=== PATIENT | female | born 1995 | race Asian ===

== ENCOUNTER 2022-03-02 09:00 | Outpatient (RCR) | payer OTHER, SELFPAY ==
--- NOTE | ~2022-03-02 | US_ITS ---
EXAMINATION: US OB BPP wo non-stress DATE: 03/02/2022 10:49 INDICATION: Cholestasis. Third trimester. TECHNIQUE: Real-time pelvic ultrasound was performed. COMPARISON: None. FINDINGS: There is a single living fetus in vertex presentation. The placenta is anterior. The cervix is not w ell visualized. heart rate is 150 beats per minute (bpm). The amniotic fluid index is 8.4 cm, w hich is normal. Biophysical profile performed by the technologist: breathing (30 sec sustained breathing in 30 minutes): 2 out of 2 movement (3 gross body movements in 30 minutes): 2 out of 2 tone (one episode of [id number]-[id number] limb movement): 2 out of 2 Amniotic fluid pocket (2 cm): 2 out of 2 Total score: 8 out of 8 IMPRESSION: 1. Single living fetus in vertex presentation. 2. Biophysical profile 8 out of 8. Reviewed, dictated and finalized at location A.
[2022-03-02 10:19] VITALS: BP 105/75; PULSE 108
== END 2022-03-25 10:14 | disposition home or self-care (01) ==
LOC: ANHOBOP 09:00
PROVIDERS: Visit Provider Advanced Practice Midwife
DX: O26.613 Liver and biliary tract disorders in pregnancy, third trimester (principal); K83.1 Obstruction of bile duct; Z3A.36 36 weeks gestation of pregnancy
CPT/HCPCS: 59025; 76819

== ENCOUNTER 2022-03-06 16:17 | Inpatient (IN) | payer OTHER, SELFPAY ==
[2022-03-06] VITALS (30 sets, daily range): BP systolic 118–124; BP diastolic 79–85; PULSE 101–126; TEMP 36.6; O2SAT 96–100; BMI 33.3
--- NOTE | 2022-03-06 17:01 | LDADM ---
This patient, Bridger Rodas, was admitted to Labor/Delivery/Recovery 106 on 03/06/22 at 16:17. Plans for labor, pain management and were discussed with patient. Patient/family oriented to hospital policies and general routines including ID bracelet, bed and alarms, visiting hours, pain management, procedures, bathroom and other care routines, personal items, smoking policy, room service/diet and guest tray routines, infant security routines, and visiting hours. Patient/Family are encouraged to report perceived risks to care and to ask questions if they do not understand what they are told or what they should do. See OBIX for further documentation.
[2022-03-06 17:28] LABS: Basophils Percent Auto 0.4 % (0.2-1.2); Eosinophils Absolute Auto 0.3 K/mm3 (0-0.3); Eosinophils Percent Auto 3.3 % (0-4.4); Hematocrit 36.2 % (37.0-47.0); Hemoglobin 11.6 g/dL (12.0-15.0); Immature Granulocyte Absolute 0.04 K/mm3 (0.00-0.031); Immature Granulocyte Percent A 0.4 % (0-0.5); Lymphocytes Absolute Auto 3.01 K/mm3 (0.9-3.2); Lymphocytes Percent Auto 32.3 % (18.3-44.2); Mean Corpuscular Hemoglobin 27.8 pg (26-34); Mean Corpuscular Volume 86.8 fl (80-100); Mean Platelet Volume 9.8 fl (7.4-10.4); Monocytes Absolute Auto 0.8 K/mm3 (0.1-0.6); Monocytes Percent Auto 8.7 % (2.6-8.5); Neutrophils Absolute Auto 5.1 K/mm3 (1.3-6.7); Neutrophils Percent Auto 54.9 % (45.5-73.1); Platelet Count Result 376 k/mm3 (150-375); Red Blood Count 4.17 M/mm3 (4.2-5.4); Red Cell Distribution Width 14.5 % (11.5-14.5); White Blood Count 9.3 K/mm3 (4.5-10.0)
[2022-03-06] MEDS: miSOPROStol 25 MCG TABLET VAGINAL (17:59)
[2022-03-06] MEDS: LACTATED RINGERS 1,000 ML 125 ML IV CONT (22:08)
[2022-03-06] MEDS: OXYTOCIN 30 UNITS/NS 500 ML 30 UNITS/500 ML BAG IV CONT (23:37)
[2022-03-07] VITALS (176 sets, daily range): BP systolic 93–174; BP diastolic 57–118; PULSE 54–131; RESP 16–18; TEMP 36.3–37; O2SAT 85–100
[2022-03-07] MEDS: LACTATED RINGERS 1,000 ML 125 ML IV CONT (00:34)
--- NOTE | 2022-03-07 06:09 | PM.IMHP ---
H&P: HPI History of Present Illness Date/Time: 03/07/22 06:09 Chief Complaint: induction of labor Narrative: Bridger is a 26yo at 37.3 IOL cholestasis. Also has A1GDM and late care and 4cm dermoid. Taking ursodiol. Review of Systems Review of Systems: All systems reviewed & are unremarkable except as noted in HPI and below PMFSH Family History Family History (Updated 03/02/22 @ 16:09 by Evans Gtz RN) Father Fatty liver Mother Hypertension Social History Social History Smoking status: Never smoker Second hand tobacco smoke exposure: No Substance use: never Spiritual care concerns: No Meds Home Medications and Allergies Home Medications Medication Instructions Recorded Confirmed Type ursodiol 300 mg capsule 300 mg PO TID 03/06/22 03/06/22 History Allergies Allergy/AdvReac Type Severity Reaction Status Date / Time No Known Allergies Allergy Verified 03/06/22 17:05 Vital Signs Vital Signs - 24 hr 03/06/22 16:55 03/06/22 17:00 03/06/22 17:16 Temperature Pulse Rate 106 H 117 H 104 H Blood Pressure 123/83 123/85 124/82 Pulse Oximetry Oxygen Delivery 03/06/22 18:05 03/06/22 20:38 03/06/22 22:03 Temperature 97.9 F Pulse Rate 103 H Blood Pressure 118/79 Pulse Oximetry 97 Oxygen Delivery 03/06/22 22:08 03/06/22 22:11 03/06/22 22:16 Temperature Pulse Rate Blood Pressure Pulse Oximetry 98 96 96 Oxygen Delivery 03/06/22 22:21 03/06/22 22:26 03/06/22 22:31 Temperature Pulse Rate Blood Pressure Pulse Oximetry 99 99 100 Oxygen Delivery 03/06/22 22:36 03/06/22 22:41 03/06/22 22:46 Temperature Pulse Rate Blood Pressure Pulse Oximetry 100 100 100 Oxygen Delivery 03/06/22 22:56 03/06/22 22:57 03/06/22 22:58 Temperature Pulse Rate Blood Pressure Pulse Oximetry 100 100 96 Oxygen Delivery 03/06/22 22:58 03/06/22 23:03 03/06/22 23:08 Temperature Pulse Rate Blood Pressure Pulse Oximetry 98 97 98 Oxygen Delivery 03/06/22 23:13 03/06/22 23:18 03/06/22 23:23 Temperature Pulse Rate Blood Pressure Pulse Oximetry 98 98 99 Oxygen Delivery 03/06/22 23:28 03/06/22 23:33 03/06/22 23:38 Temperature Pulse Rate Blood Pressure Pulse Oximetry 98 98 98 Oxygen Delivery 03/06/22 23:43 03/06/22 23:47 03/06/22 23:52 Temperature Pulse Rate Blood Pressure Pulse Oximetry 98 99 98 Oxygen Delivery 03/06/22 23:57 03/07/22 00:02 03/07/22 00:07 Temperature Pulse Rate Blood Pressure Pulse Oximetry 100 97 98 Oxygen Delivery 03/07/22 00:12 03/07/22 00:17 03/07/22 00:22 Temperature Pulse Rate Blood Pressure Pulse Oximetry 97 97 98 Oxygen Delivery 03/07/22 00:27 03/07/22 00:32 03/07/22 00:37 Temperature Pulse Rate Blood Pressure Pulse Oximetry 98 99 98 Oxygen Delivery 03/07/22 00:42 03/07/22 00:47 03/07/22 00:50 Temperature Pulse Rate Blood Pressure Pulse Oximetry 99 100 98 Oxygen Delivery 03/07/22 00:55 03/07/22 01:00 03/07/22 01:05 Temperature Pulse Rate Blood Pressure Pulse Oximetry 98 98 99 Oxygen Delivery 03/07/22 01:10 03/07/22 01:15 03/07/22 01:20 Temperature Pulse Rate Blood Pressure Pulse Oximetry 97 93 99 Oxygen Delivery 03/07/22 01:25 03/07/22 01:29 03/07/22 01:30 Temperature Pulse Rate 106 H Blood Pressure 127/75 Pulse Oximetry 96 99 Oxygen Delivery 03/07/22 01:35 03/07/22 01:40 03/07/22 01:45 Temperature Pulse Rate Blood Pressure Pulse Oximetry 98 99 98 Oxygen Delivery 03/07/22 01:50 03/07/22 01:55 03/07/22 02:02 Temperature Pulse Rate Blood Pressure Pulse Oximetry 98 99 100 Oxygen Delivery 03/07/22 02:03 03/07/22 02:08 03/07/22 02:10 Temperature Pulse Rate 104 H Blood Pressure 108/57 L Pulse Oximetry 99 10
[2022-03-07] MEDS: fentaNYL CITRATE INJ (*CRX) 100 MCG/2 ML VIAL 50 MCG IV PUSH ×2 (08:12→10:22)
--- NOTE | 2022-03-07 13:48 | PM.OBPRVD ---
OB - Delivery Note Procedure Delivery date: 03/07/22 Procedure: Events: Other (cholestasis) Induction method: AROM, Per Misoprostol Protocol and Per Pitocin Protocol Delivery monitor: External FHT and Internal Uterine Route of delivery: Laceration Description: None Quantitative Blood Loss (ml): 110 Anesthesia type: None Disposition: Floor [place] Baby Date of : 03/07/22 Time of : 13:24 Weeks of gestation at delivery: 37 gender: Male Weight (pounds): 5 Weight (ounces): 15 presentation: vertex Placenta delivery description: Spontaneous Cord Vessel Description: 3 Vessels, Nuchal Cord and Delayed Cord Clamping score one minute: 8 score five minutes: 9
[2022-03-07] MEDS: OXYTOCIN 30 UNITS/NS 500 ML 30 UNITS/500 ML BAG 125 UNITS IV CONT (14:05)
[2022-03-07] MEDS: LIDOCAINE HCL 1% PF 30 ML VIAL (14:05)
--- NOTE | 2022-03-07 15:54 | PC.NURSE ---
Patient transferred to post room #285 via wheelchair. Support person present. Oriented to unit, room, information board, rooming in, admission packet and security measures. Patient verbalizes understanding.
[2022-03-08 04:35] VITALS: BP 115/71; PULSE 106; RESP 16; TEMP 36.9; O2SAT 98
[2022-03-08 05:32] LABS: Hematocrit 34.1 % (37.0-47.0); Hemoglobin 11.3 g/dL (12.0-15.0)
[2022-03-08 06:42] LABS: Rapid Plasma Reagin Non-Reactive (NonReactive)
[2022-03-08 07:40] VITALS: BP 129/79; PULSE 111; RESP 18; TEMP 36.9; O2SAT 100
[2022-03-08] MEDS: IBUPROFEN 600 MG TABLET PO (09:55)
[2022-03-08] MEDS: MULTIVIT/MIN/PREN/FOL AC/IRON TABLET 1 TAB PO (09:56)
[2022-03-08 12:25] VITALS: BP 128/85; PULSE 110; RESP 17; TEMP 36.8; O2SAT 99
--- NOTE | 2022-03-08 13:09 | PM.OBPNVD ---
OB - PN: Subj Subjective Date/time seen: 03/08/22 13:09 Patient comments: no complaints, pain well controlled and tolerating diet OB - PN: Obj Data Labs CBC & Chem 7: 03/08/22 05:21 Labs: Laboratory Results - last 24 hr 03/06/22 03/08/22 17:08 05:21 Hgb 11.3 L Hct 34.1 L RPR Non-reactive OB - PN A/P Plan day: 2 Plan: routine care and discharge home Time Spent With Patient Time: Total time spent is greater than 50% in coordination of care (as documented) at patient's floor/unit and/or counseling patient: Exam Const: General: comfortable and no acute distress Resp: Effort & Inspection: normal respiratory effort Auscultation: no rales, no rhonchi and no wheezes Cardio: Rate: regular rate Heart sounds: no click, no murmurs and no rubs GI: GI Palp: Yes Soft to palpation and No Tenderness to palpation present (GI) Auscultation: normal bowel sounds Extrem: General: normal to inspection, no pedal edema and no calf tenderness
--- NOTE | 2022-03-08 13:12 | PM.OBDSVD ---
DS: Admitting Diagnosis Discharge Date March 08, 2022 Admitting Diagnosis term OB - DS: Summary OB Procedures : None OB Procedures Intrapartum: Spontaneous Vag Delivery OB Procedures: : None Time Spent with Patient Time attestation: Total time spent providing and/or coordinating discharge services: DS: Data Data Completed and Pending Labs on day of discharge: Labs from last 24 hours 03/08/22 03/06/22 05:21 17:08 Hgb 11.3 L Hct 34.1 L RPR Non-reactive Discharge Plan Discharge Attending physician on discharge: Tomeka Ramos Discharging Clinician: Tomeka Ramos Patient Disposition: Home, Self-Care Activity: pelvic rest Diet: regular Patient Instructions: Antibiotic Form Stand Alone Forms: General Discharge Information Follow-up/Referrals: Tomeka Ramos MD [Physician] - Discharge Medications: Continued ursodiol 300 mg capsule 300 mg PO TID Date of admission: 03/06/22 16:17 Primary Care Provider: Angela Gifford Admitting Provider: Leanna Chacon Attending physician on admission: Leanna Chacon Condition: Stable
[2022-03-08 20:05] VITALS: BP 124/72; PULSE 94; RESP 16; TEMP 36.1; O2SAT 99
[2022-03-09 08:05] VITALS: BP 127/85; PULSE 100; RESP 18; TEMP 36.5; O2SAT 99
--- NOTE | 2022-03-09 08:11 | PM.OBPNVD ---
OB - PN: Subj Subjective Date/time seen: 03/09/22 08:11 Patient comments: no complaints and pain well controlled baby status: doing well and nursing well [place] feeding status: exclusively breast feeding OB - PN: Obj Data Labs CBC & Chem 7: 03/08/22 05:21 OB - PN A/P Plan day: 2 Plan: routine care and discharge home Time Spent With Patient Time: Total time spent is greater than 50% in coordination of care (as documented) at patient's floor/unit and/or counseling patient: Time with patient: less than 15 minutes Exam Narrative: NAD abdomen soft, nontender, fundus firm below the umbilicus Extremities nontender, 1+ edema
[2022-03-09] MEDS: IBUPROFEN 600 MG TABLET PO (08:30)
[2022-03-09] MEDS: MULTIVIT/MIN/PREN/FOL AC/IRON TABLET 1 TAB PO (08:30)
[2022-03-09] MEDS: DOCUSATE SODIUM 100 MG CAPSULE PO (08:30)
[2022-03-09 09:30] VITALS: PULSE 100; RESP 18; O2SAT 99
--- NOTE | 2022-03-09 11:36 | PC.NURSE ---
[id number] Introductions were made, then consulted with patient to assess needs related to . Mother led the conversation with her?plans to feed?her infant and the?experience so far as she hold skin to skin by the window. Resources provided for inpatient and outpatient services using a resource guide and mom/baby guide. Mother voiced understanding of information and requests assistance. Mother demonstrates hand expression and copious milk drops from her breast. is sleepy and reluctant after his circumcision and medication for pain. Mother demonstrated understanding of using the sandwich hold and cross cradle positioning. Infant was able to latch and had good suck/swallow ratios for 5-7 minutes, then went to sleep. Reviewed the pie education for understanding infant's intake. Mother requested a pump to go home with and a Zomee was provided through [employer] and insurance. Instructions given on cleaning, care, usage, that there should be no pain, pumping schedule for milk production, collection, and storage of human milk. Patient educated to pump for comfort and nipple stretching/stimulation for adequate milk production every 3 hours (8 times in 24 hours) 1-2 times at night. Mother plans on pumping for emergencies . She plans on latching her to the breast but desires a pump just incase her needs to eat and doesn't latch at home. Mother led the conversation with her experience and plan to feed her so far and her ability to independently latch infant optimally without discomfort. Reminded parents to use good handwashing technique to prevent infection. Mother is feeding appropriately for growth of and understands stimulating to eat if needed. Infant has had appropriate feedings in the last 24 hours meets the outcomes for weight, output and jaundice at this time. Mother states she is confident to continue effectively her at home or when to call for assistance and denies any additional assistance or education at this time. Reinforced understanding of milk production, transition of milk, signs of adequate intake, prevention/relief of engorgement, responsive after visualizing feeding cues, the different methods of stimulating infant to breastfeed 2-3 hours after the start of the last feeding, community resources, medication information reviewed per [employer] and when to call a provider using the resource of the mom and baby guide/[facility] website. Mother voiced understanding of the education shared. Reported to the primary RN.
--- NOTE | 2022-03-09 12:24 | PC.NURSE ---
Patient viewed the discharge video Mother & Baby Care, The First Two Weeks . Patient was given the opportunity and encouraged to ask questions. Patient verbalized understanding of information shared and has been given the mother/baby guide for home reference.
== END 2022-03-09 12:10 | disposition home or self-care (01) | DRG 560 ==
LOC: ANHLDR 16:24 → ANHOB2 03-07 16:36
PROVIDERS: Admitting Provider Obstetrics & Gynecology; PCP Advanced Practice Midwife; Visit Provider Obstetrics & Gynecology
DX: O26.62 Liver and biliary tract disorders in childbirth (principal); K83.1 Obstruction of bile duct; Z37.0 Single live birth; Z3A.37 37 weeks gestation of pregnancy; O36.8330 Maternal care for abnormalities of the fetal heart rate or rhythm, third trimester, not applicable or unspecified; O24.420 Gestational diabetes mellitus in childbirth, diet controlled
CPT/HCPCS: 36415; 85014; 85018; 85025; 86592; 86850; 86900; 86901; A9270; J2590; J3010; J7120